=== PATIENT | female | born 1960 | race Hispanic/Latino ===

== ENCOUNTER 2017-04-28 12:23 | Outpatient (CLI) | payer MEDICARE ==
--- NOTE | 2017-04-28 14:40 | Mammography Report ---
Diagnostic mammogram with spot compression magnification and sonogram of right breast zone A and zone B. including subareolar area: History: Right nipple bloody discharge. Findings: On spot magnification views there is suspected dilated ducts noted in subareolar outer zone. No mass is seen in the ducts. There is 4 mm circumscribed density noted in the inner right breast. No microcalcification Sonographic examination reveals dilated ducts subareolar outer area without intrinsic mass or debris. Cluster of small cysts in the right breast probably corresponding to the density seen on spot views. No Impression: Dilated ducts subareolar area without mass or debris. Cluster of cysts in the right breast. Probably benign findings. Six-month followup is recommended. If patient has abnormal discharge ductogram may be advised. BI-RADS CATEGORY: 3 = Probably benign ACR BI-RADS MAMMOGRAPHIC CODES: 0 = Needs additional imaging evaluation; 1 = Negative; 2 = Benign; 3 = Probably benign; 4 = Suspicious; 5 = Malignant; 6 = Known biopsy-proven malignancy COMMENT: 1. Dense breast tissue, i.e., adenosis, fibrocystic changes, etc., may obscure an underlying neoplasm. 2. Approximately 10% of cancers are not detected with mammography. 3. A negative mammography report should not delay biopsy if a clinically suspicious mass is present. COMMENT: Patient follow-up letters are generated in [email or web address].
== END 2017-04-28 12:24 | disposition home or self-care (01) ==
LOC: SPVWC 12:23
PROVIDERS: ATTEND Surgery
DX: N64.52 Nipple discharge (principal); R92.2 Inconclusive mammogram
CPT/HCPCS: 76641; G0204; 77066

== ENCOUNTER 2017-06-24 07:03 | Day surgery (SDC) | payer MEDICARE, OTHER ==
[~2017-06-24 07:03] MED LIST: NACL 0.9% 1000 ML 1,000 ML IV SCH; PEPCID PO NR; VERSED IV NR
[2017-06-24] MEDS ORDERED: XYLOCAINE 1% 20 mL ONE (07:26)
[2017-06-24] MEDS ORDERED: MARCAINE 0.25% INFILTRATI ONE ×2 (07:26→09:58)
[2017-06-24] MEDS ORDERED: NACL BACTERIOSTATIC INFILTRATI ONE (07:27)
--- NOTE | 2017-06-24 07:40 | Anesthesia Day of Surgery ---
Anesthesia Day of Surgery - Day of Surgery Patient Examined: Yes Patient H&P Reviewed: Yes Patient is NPO: Yes Beta Blockers: Yes (took last evening)
--- NOTE | 2017-06-24 07:43 | Anesthesia Consultation ---
Anesthesia Consult and Med Hx Date of service: 06/24/17 - Airway Anesthetic Teeth Evaluation: Dentures (upper) ROM Head & Neck: Adequate Mental/Hyoid Distance: Adequate Mallampati Class: Class II Intubation Access Assessment: Probably Good - Pulmonary Exam CTA: Yes - Cardiac Exam Cardiac Exam: RRR - Pre-Operative Health Status ASA Pre-Surgery Classification: ASA3 Proposed Anesthetic Plan: General - Pulmonary Hx Smoking: Yes (STOPPED X 8 YRS- 2 PPD X 30 YRS) Hx Asthma: Yes (PRN INHALER, last used 8 yrs ago) Hx Sleep Apnea: No (SINDY PRE SCREEN HIGH RISK) - Cardiovascular System Hx Hypertension: Yes (NO MEDS) Hx Heart Attack/AMI: No Hx Cardia Arrhythmia: Yes (Afib, took atenolol last night) - Central Nervous System Hx Seizures: No CVA: No Hx Back Pain: Yes - Gastrointestinal Hx Gastroesophageal Reflux Disease: Yes (controlled with meds) - Endocrine Hx Renal Disease: Yes (Kidney disease stage 3) Hx Liver Disease: No Hx Non-Insulin Dependent Diabetes: Yes (insulin and pill) Hx Hypothyroidism: Yes (HX GRAVES DISEASE-TX WITH SURGERY) - Hematic Hx Anemia: Yes - Other Systems Hx Cancer: Yes (colon ca sp colon resection) Hx Obesity: Yes - Additional Comments Anesthesia Medical History Comments: NAC
[2017-06-24] MEDS ORDERED: BENADRYL ONE (08:00)
[2017-06-24] MEDS ORDERED: DECADRON ONE (08:29)
[2017-06-24] MEDS ORDERED: ZOFRAN ONE (08:29)
[2017-06-24] MEDS ORDERED: XYLOCAINE MPF 2% ONE (08:29)
[2017-06-24] MEDS ORDERED: SUBLIMAZE ONE (08:29)
[2017-06-24] MEDS ORDERED: DIPRIVAN 10 MG/ML IV ONE ×2 (08:29→10:13)
[2017-06-24] MEDS ORDERED: VANCOMYCIN/NS 1 GM/250 ML 1 GM/250 ML BAG IV NR (09:00)
[2017-06-24] MEDS ORDERED: DILAUDID IV PRN (09:14)
[2017-06-24] MEDS ORDERED: QUELICIN ONE (09:52)
[2017-06-24] MEDS ORDERED: PROAIR IH ONE (09:55)
[2017-06-24] MEDS ORDERED: XYLOCAINE 1% 20 mL INFILTRATI ONE (09:58)
[2017-06-24] MEDS ORDERED: WATER FOR IRRIG STERILE IR ONE (09:58)
[2017-06-24] MEDS ORDERED: ROBINUL ONE (10:00)
[2017-06-24] MEDS ORDERED: ZOFRAN IV PRN (10:00)
[2017-06-24] MEDS ORDERED: PROVENTIL IH ONE ×2 (10:40→12:00)
--- NOTE | 2017-06-24 10:46 | Short Stay Summary ---
Short Stay Documentation Date of service: 06/24/17 - History H&P: obtained from office - Allergies and Medications Current Medications: Allergies amoxicillin Allergy (Verified 06/17/17 15:26) Rash amoxicillin trihydrate [From Augmentin] Allergy (Verified 06/17/17 15:26) PASSES OUT cefaclor [From Ceclor] Allergy (Verified 06/17/17 15:26) Rash cefuroxime Allergy (Verified 06/17/17 15:26) Rash codeine Allergy (Verified 06/17/17 15:) Rash dimenhydrinate Allergy (Verified 06/17/17 15:) Rash Iodinated Contrast Media - IV Dye Allergy (Verified 06/17/17 15:) Rash meperidine HCl [From Demerol] Allergy (Verified 06/17/17:) Rash metronidazole [From Flagyl] Allergy (Verified 06/17/17 15:) Rash nitrofurantoin [From Macrobid] Allergy (Verified 06/17/17 15:) Rash nitrofurantoin macrocrystalline [From Macrobid] Allergy (Verified 06/17/17 15: ) Rash oxycodone Allergy (Verified 06/17/17 15:26) Rash potassium clavulanate [From Augmentin] Allergy (Verified 06/17/17 15:26) PASSES OUT Sulfa (Sulfonamide Antibiotics) Allergy (Verified 06/17/17:26) Rash tetracycline Allergy (Verified 06/17/17 15:) Rash topiramate Allergy (Verified 06/17/17 15:) Rash tramadol Allergy (Verified 06/17/17 15:26) PASSES OUT Home Medications Medication Instructions Recorded Confirmed Last Taken Type Ibuprofen [Motrin 800 MG tab] 800 mg PO Q8HR PRN #30 tablet 06/24/17 Unknown Rx Active Medications Hydromorphone HCl (Dilaudid) 0.5 mg IV Q10MIN PRN PRN Reason: Pain , Severe (7-10) Stop: 06/24/17 15:00 Sodium Chloride (Nacl 0.9% 1000 Ml) 1,000 mls @ 100 mls/hr IV DIRECT RUY Last Admin: 06/24/17 08:26 Dose: 100 mls/hr Vancomycin HCl (Vancomycin/Ns 1 Gm/250 Ml) 1 gm in 250 mls @ 167.007 mls/hr IV PREOP NR PRN Reason: Protocol Stop: 06/24/17 12:00 Last Admin: 06/24/17 08:31 Dose: 167.007 mls/hr Midazolam HCl (Versed) 2 mg IV PREOP NR Stop: 06/24/17 23:59 Last Admin: 06/24/17 08:27 Dose: 2 mg - Brief post op/procedure progress note Date of procedure: 06/24/17 Pre-op diagnosis: Right bloody nipple discharge Post-op diagnosis: same Procedure: Right nipple terminal duct excisional biopsy Anesthesia: GETA Findings: Right nipple spontaneous bloody nipple discharge with duct identified Surgeon: KIMMY HERNANDEZ Estimated blood loss: minimal Pathology: list Specimen disposition: to lab Condition: stable - Disposition Condition at discharge: Good Disposition: DC-01 TO HOME OR SELFCARE Short Stay Discharge Plan Activity: other (no heavy lifting) Diet: regular Wound: other (keep incision clean and dry; may shower in 24 hours; no baths, pools or lakes; do not rub or scrub incision) Follow up with: RICKY IBARRA MD [Primary Care Provider] - 7 Days KIMMY HERNANDEZ MD [Staff Physician] - 7 Days Prescriptions: Ibuprofen [Motrin 800 MG tab] 800 mg PO Q8HR PRN #30 tablet PRN Reason: Pain
--- NOTE | 2017-06-24 10:53 | Operative Report ---
Operative Report Operative Report: Date of procedure:[06/24/2017] Pre-operative diagnosis: Spontaneous right bloody nipple discharge Post-operative diagnosis: Same Procedure name(s): Right nipple terminal duct excisional biopsy Surgeon: Prema Wilkes M.D. Anesthesia: Gen. Findings: Bleeding from right nipple noted around the 9 o'clock position was appropriately identified and dissected free and sent to pathology Complications: None Drains: None Estimated blood loss: Minimal Disposition: PACU in good condition Indications for operative procedure: This is a 57 year old lady with right nipple spontaneous bloody nipple discharge. Recent diagnostic mammogram with benign findings and ductogram performed with nondiagnostic findings. Recommendations are to proceed with a right nipple terminal duct excisional biopsy to rule out malignancy. Patient wished to proceed with the above procedure. Procedure in detail: The patient was taken to the operating room. Gen. anesthesia was administered. The right breast was prepped and draped in the normal side operative fashion. The bleeding duct from the right nipple was identified around the 9 o'clock position. Lacrimal probe was inserted. A lateral periareolar incision was made with a 15 blade knife with dissection taken down to the subcutaneous tissues. First began with dissection of the tissues posterior to the nipple taken down posteriorly to 3 cm. The duct of concern was identified with a lacrimal probe appropriately inserted with duct appropriately dissected free. The terminal duct was appropriately marked using a 3-0 Vicryl stitch. The terminal duct with its surrounding tissues were removed with the aid of Bovie cautery and sent to pathology. Hemostasis was obtained with the aid of Bovie cautery. The breast cavity tissues were anesthetized with 1% lidocaine and quarter percent Marcaine. The subcutaneous tissues were approximated and closed using interrupted 3-0 Vicryl and skin brought together and closed using a running 4-0 Monocryl followed by skin affix. She tolerated surgery very well and was awakened from anesthesia without any complications and transported to PACU in good condition.
--- NOTE | 2017-06-24 15:19 | Post Anesthesia Evaluation ---
- Post Anesthesia Evaluation Patient Participated: Yes Airway Patent: Yes Stable Respiratory Function: Yes Nausea/Vomiting: No Temp > 96.8F: Yes Pain Manageable: Yes Adequeate Hydration: Yes Anesthesia Complications: No Block Receding Appropriately: Not Applicable Patient on Ventilator: No
[2017-06-24 18:35] VITALS: BP 102/57
== END 2017-06-24 12:49 | disposition home or self-care (01) ==
LOC: OR 07:03
PROVIDERS: ATTEND Surgery
DX: D24.1 Benign neoplasm of right breast (principal); J45.909 Unspecified asthma, uncomplicated; I48.91 Unspecified atrial fibrillation; K21.9 Gastro-esophageal reflux disease without esophagitis; E11.22 Type 2 diabetes mellitus with diabetic chronic kidney disease; I12.9 Hypertensive chronic kidney disease with stage 1 through stage 4 chronic kidney disease, or unspecified chronic kidney disease; N18.3 Chronic kidney disease, stage 3 (moderate); E03.9 Hypothyroidism, unspecified; D64.9 Anemia, unspecified; E66.9 Obesity, unspecified; Z68.41 Body mass index [BMI] 40.0-44.9, adult; Z87.891 Personal history of nicotine dependence; Z79.4 Long term (current) use of insulin; Z79.899 Other long term (current) drug therapy; Z90.49 Acquired absence of other specified parts of digestive tract; Z98.890 Other specified postprocedural states; Z85.038 Personal history of other malignant neoplasm of large intestine; Z88.1 Allergy status to other antibiotic agents; Z88.8 Allergy status to other drugs, medicaments and biological substances; Z88.5 Allergy status to narcotic agent; Z88.2 Allergy status to sulfonamides; Z91.041 Radiographic dye allergy status; Z80.0 Family history of malignant neoplasm of digestive organs; Z80.42 Family history of malignant neoplasm of prostate
CPT/HCPCS: 19120; 82962; 88307; J0330; J1100; J1200; J2250; J2405; J2704; J3010; J3370; J7030

== ENCOUNTER 2017-12-22 09:14 | Outpatient (CLI) | payer MEDICARE ==
--- NOTE | 2017-12-22 15:58 | Mammography Report ---
BILATERAL DIGITAL SCREENING MAMMOGRAM with CAD: 12/22/17 09:14:00 CLINICAL: Routine screening.History of a bloody right nipple discharge with negative workup. COMPARISON:04/28/17 FINDINGS: The breasts are almost entirely fatty.Right retroareolar ducts are smaller compared to prior exams. No mass, architectural distortion or suspicious calcifications. IMPRESSION: No mammographic evidence of malignancy. BI-RADS CATEGORY: 2 -- Benign RECOMMENDATION: Routine mammographic screening in one year. COMMENT: Patient follow-up letters are generated by our [employer] application.
== END 2017-12-22 09:15 | disposition home or self-care (01) ==
LOC: SPVWC 09:14
PROVIDERS: ATTEND Surgery
DX: Z12.31 Encounter for screening mammogram for malignant neoplasm of breast (principal)
CPT/HCPCS: 77067

== ENCOUNTER 2020-12-04 13:14 | Outpatient (CLI) | payer MEDICARE ==
--- NOTE | 2020-12-04 14:57 | Mammography Report ---
DIGITAL DIAGNOSTIC MAMMOGRAM WITH CAD , 12/04/2020 CLINICAL INFORMATION / INDICATION: History of bilateral nipple discharge FIBROSCLEROSIS OF LEFT BREAS T TECHNIQUE: Digital bilateral mammographic imaging was performed. This examination was interpreted with the benefit of Computer-aided Detection analysis. COMPARISON: 05/29/2020, 04/28/2017 FINDINGS: Breast Density: There are scattered areas of fibroglandular density. No dominant mass, suspicious calcifications or architectural distortion in either breast. Mild bilate ral ductal ectasia as well as mild stable benign-appearing nodularity is present and unchanged from 2 017. No interval change. IMPRESSION: No mammographic evidence of malignancy. Follow up recommendation: Clinical correlation with respect to bilateral nipple discharge. Otherwise resumption of annual screening mammography. BI-RADS Category 2: Benign. A "normal" or negative report should not discourage follow up or biopsy of a clinically significant f inding. A written summary of these findings will be mailed to the patient. The patient will be entered into a mammography reporting system which will generate a reminder letter for the patient's next appointmen t at the appropriate interval. According to the [employer], yearly mammograms are recommended starting at age 40 and continuing as long as a woman is in good health. Breast MRI is recommended for women with an tima roximately 20-25% or greater lifetime risk of breast cancer, including women with a strong family his tory of breast or ovarian cancer and women who have been treated for Hodgkin's disease. Signer Name: Adele Stallings MD Signed: 12/04/2020 2:53 PM Workstation Name: [id number]
--- NOTE | 2020-12-04 15:45 | Ultrasound Report ---
ULTRASOUND BREAST BILATERAL COMPLETE, 12/04/2020 CLINICAL INFORMATION / INDICATION: History of bilateral nipple discharge. TECHNIQUE: Complete sonographic evaluation of all 4 quadrants and retroareolar region was performed. COMPARISON: Bilateral mammography performed earlier today. FINDINGS: RIGHT: There is no evidence of a cystic or solid mass. No posterior shadowing or distortion are seen. There is no evidence of ductal ectasia or axillary adenopathy. LEFT: There is a mildly dilated duct at the 2:30 position 2 cm from the nipple. There is a 5.2 mm ovo id isoechoic solid nodule within the duct at that site. A focally dilated duct is seen in this region on mammography as well. No other abnormality is seen in the left breast. There is no evidence of argelia nopathy. IMPRESSION: 5 mm ovoid solid nodule within a focally dilated duct in the left breast at the 2:30 posi tion 2 cm from the nipple. There is a probable mammographic correlate. Ultrasound guided biopsy is re commended. Follow up recommendation: Surgical consult BI-RADS Category 4: Suspicious for Malignancy. BI-RADS Category 4A-low suspicion for malignancy. A normal or "negative" report should not preclude biopsy or follow-up of a clinically suspicious find ing. Signer Name: Ranjit Goodman MD Signed: 12/04/2020 3:40 PM Workstation Name: [id number]
== END 2020-12-04 13:15 | disposition home or self-care (01) ==
LOC: SPVWC 13:14
PROVIDERS: ATTEND Surgery
DX: N63.21 Unspecified lump in the left breast, upper outer quadrant (principal); N60.31 Fibrosclerosis of right breast
CPT/HCPCS: 77066

== ENCOUNTER 2020-12-11 12:15 | Outpatient (CLI) | payer MEDICARE ==
--- NOTE | 2020-12-11 13:49 | Mammography Report ---
ULTRASOUND GUIDED LEFT BREAST BIOPSY, 12/11/2020 DIAGNOSTIC MAMMOGRAM OF THE LEFT BREAST CLINICAL INFORMATION / INDICATION: POST US BX. COMPARISON: Mammogram and breast ultrasound from 12/04/2020 PROCEDURE: Risks, benefits, and indications to the procedure were discussed with the patient in detail, includin g bleeding, infection, hematoma formation, and inadequate tissue sampling. The patient agreed to proc eed with both verbal and written consent. A timeout procedure was performed with two patient identifi ers. The breast was prepped and draped in the usual sterile fashion. Lidocaine 1% was used for local anest hesia. Under direct ultrasound guidance, 4 separate core samples were obtained of the left breast int raductal nodule. A biopsy marker was then placed and a mammogram was performed to confirm appropriat e clip placement. Biopsy device was removed and hemostasis achieved with manual pressure. A sterile d ressing was applied to the skin. The patient tolerated the procedure without difficulty. No complications were encountered. Postbiopsy instructions were discussed with the patient and given in writing. Specimens were sent to pathology. IMPRESSION: 1. Technically successful ultrasound guided left breast biopsy and clip placement. Biopsy results are pending and will be reported in an addendum. Signer Name: Mahendra Bower MD Signed: 12/11/2020 1:45 PM Workstation Name: [id number]
--- NOTE | 2020-12-11 14:53 | Ultrasound Report ---
ULTRASOUND GUIDED LEFT BREAST BIOPSY, 12/11/2020 DIAGNOSTIC MAMMOGRAM OF THE LEFT BREAST CLINICAL INFORMATION / INDICATION: ABNORMAL MAMMOGRAM. COMPARISON: Mammogram and breast ultrasound from 12/04/2020 PROCEDURE: Risks, benefits, and indications to the procedure were discussed with the patient in detail, includin g bleeding, infection, hematoma formation, and inadequate tissue sampling. The patient agreed to proc eed with both verbal and written consent. A timeout procedure was performed with two patient identifi ers. The breast was prepped and draped in the usual sterile fashion. Lidocaine 1% was used for local anest hesia. Under direct ultrasound guidance, 4 separate core samples were obtained of the left breast int raductal nodule. A biopsy marker was then placed and a mammogram was performed to confirm appropriat e clip placement. Biopsy device was removed and hemostasis achieved with manual pressure. A sterile d ressing was applied to the skin. The patient tolerated the procedure without difficulty. No complications were encountered. Postbiopsy instructions were discussed with the patient and given in writing. Specimens were sent to pathology. IMPRESSION: 1. Technically successful ultrasound guided left breast biopsy and clip placement. Biopsy results are pending and will be reported in an addendum. Signer Name: Mahendra Bower MD Signed: 12/11/2020 2:49 PM Workstation Name: [id number]
== END 2020-12-11 12:16 | disposition home or self-care (01) ==
LOC: US 12:15
PROVIDERS: ATTEND Surgery
DX: N63.21 Unspecified lump in the left breast, upper outer quadrant (principal); R92.8 Other abnormal and inconclusive findings on diagnostic imaging of breast; I12.9 Hypertensive chronic kidney disease with stage 1 through stage 4 chronic kidney disease, or unspecified chronic kidney disease; E11.22 Type 2 diabetes mellitus with diabetic chronic kidney disease; N18.9 Chronic kidney disease, unspecified; G43.909 Migraine, unspecified, not intractable, without status migrainosus; E78.00 Pure hypercholesterolemia, unspecified; J45.909 Unspecified asthma, uncomplicated; E66.9 Obesity, unspecified; K21.9 Gastro-esophageal reflux disease without esophagitis; E03.9 Hypothyroidism, unspecified; F32.9 Major depressive disorder, single episode, unspecified; Z88.6 Allergy status to analgesic agent; Z88.5 Allergy status to narcotic agent; Z88.2 Allergy status to sulfonamides; Z88.8 Allergy status to other drugs, medicaments and biological substances; Z87.891 Personal history of nicotine dependence; Z85.038 Personal history of other malignant neoplasm of large intestine; Z90.710 Acquired absence of both cervix and uterus; Z98.890 Other specified postprocedural states; Z86.2 Personal history of diseases of the blood and blood-forming organs and certain disorders involving the immune mechanism
CPT/HCPCS: 88305

== ENCOUNTER 2021-06-12 05:46 | Day surgery (SDC) | payer MEDICARE ==
[2021-06-05 15:08] LABS: Hematocrit 43.9 % (30.3-42.9); Hemoglobin 14.4 gm/dl (10.1-14.3); Mean Corpuscular HGB Conc 33 % (30-34); Mean Corpuscular Volume 86 fl (79-97); Platelet Count 176 K/mm3 (140-440); Red Cell Distribution Width 15.7 % (13.2-15.2)
[2021-06-12] MEDS ORDERED: ceFAZolin/STERILE WATER 2 GM/20 ML SYRINGE IV NR (06:00)
[2021-06-12] MEDS ORDERED: VANCOMYCIN 2,000 MG in SODIUM CHLORIDE 0.9% 500 ML 500 ML IV ONE (07:00)
[2021-06-12] MEDS ORDERED: LACTATED RINGERS 1,000 ML IV SCH (07:00)
[2021-06-12] MEDS ORDERED: VANCOMYCIN/NS 1 GM/250 ML 1 GM/250 ML BAG IV NR (07:00)
[2021-06-12] MEDS ORDERED: LIDOCAINE MPF (2%) 20 MG/1 ML VIAL 5 ML ONE (07:10)
[2021-06-12] MEDS ORDERED: propofoL 200 MG/20 ML VIAL IV ONE (07:10)
[2021-06-12] MEDS ORDERED: fentaNYL 100 MCG/2 ML INJ ONE (07:10)
[2021-06-12 07:25] LABS: INR 0.97 (0.87-1.13); Partial Thromboplastin Time 20.7 Sec. (24.2-36.6)
[2021-06-12] MEDS ORDERED: PANTOPRAZOLE 40 MG TAB PO SCH (07:29)
[2021-06-12] MEDS ORDERED: atenoloL 50 MG TAB PO SCH (07:30)
[2021-06-12] MEDS ORDERED: ONDANSETRON 4 MG/2 ML INJ IV PRN (07:32)
[2021-06-12] MEDS ORDERED: HYDROmorphone 1 MG/1 ML INJ IV PRN ×2 (07:32)
--- NOTE | 2021-06-12 07:33 | Anesthesia Day of Surgery ---
Anesthesia Day of Surgery - Day of Surgery Patient Examined: Yes Patient H&P Reviewed: Yes Patient is NPO: Yes Beta Blockers: Yes
[2021-06-12] MEDS ORDERED: LIDOCAINE (1%) 10 MG/1 ML VIAL 20 ML MDV ONE (07:34)
[2021-06-12] MEDS ORDERED: BUPIVACAINE/PF (0.25%) 2.5 MG/ML 30 ML VIAL INFILTRATI ONE ×2 (07:35→09:23)
--- NOTE | 2021-06-12 07:35 | Anesthesia Consultation ---
Anesthesia Consult and Med Hx Date of service: 06/12/21 - Airway Anesthetic Teeth Evaluation: Dentures (Upper), Edentulous (Upper) ROM Head & Neck: Adequate Mental/Hyoid Distance: Adequate Mallampati Class: Class III Intubation Access Assessment: Probably Good - Pre-Operative Health Status ASA Pre-Surgery Classification: ASA3 Proposed Anesthetic Plan: General - Pulmonary Hx Smoking: Yes (FORMER SMOKER) Hx Asthma: Yes Hx Respiratory Symptoms: No (+2FS) COPD: No Hx Pneumonia: No Hx Sleep Apnea: No (SINDY PRE SCREEN HIGH RISK) - Cardiovascular System Hx Hypertension: No (patient denies, states atenolol is for thyroid) Hx Heart Attack/AMI: No Hx Percutaneous Transluminal Coronary Angioplasty (PTCA): No Hx Cardia Arrhythmia: Yes (paraoxysmal a-fib, NSR on EKG in preassessment) Hx Pacemaker: No Hx Internal Defibrillator: No Hx Heart Murmur: No - Central Nervous System Hx Neuromuscular Disorder: Yes (Neuropathy hands and feet) Hx Seizures: No CVA: No Hx Back Pain: Yes Hx Psychiatric Problems: Yes - Gastrointestinal Hx Gastroesophageal Reflux Disease: Yes (controlled) - Endocrine Hx Renal Disease: Yes (STAGE 3 KIDNEY DISEASE) Hx End Stage Renal Disease: No (WATCHING HER KIDNEYS) Hx Cirrhosis: No Hx Liver Disease: No Hx Insulin Dependent Diabetes: Yes Hx Non-Insulin Dependent Diabetes: Yes (insulin and pill) Hx Thyroid Disease: Yes Hx Hypothyroidism: Yes - Hematic Hx Anemia: No (H/H 13-39 on outpatient labs 01/24/21) Hx Sickle Cell Disease: No - Other Systems Hx Alcohol Use: No Hx Substance Use: No Hx Cancer: Yes Hx Obesity: Yes (BMI 43)
[2021-06-12] MEDS ORDERED: PREGABALIN 75 MG CAP PO NR (08:00)
[2021-06-12] MEDS ORDERED: MIDAZOLAM 2 MG/2 ML INJ IV NR (08:00)
[2021-06-12] MEDS ORDERED: PREGABALIN 25 MG CAP PO SCH (08:00)
[2021-06-12] MEDS ORDERED: dexAMETHasone 20 MG/5 ML VIAL ONE (08:30)
[2021-06-12] MEDS ORDERED: ONDANSETRON 4 MG/2 ML INJ ONE (08:30)
[2021-06-12] MEDS ORDERED: EPINEPHrine 1 MG/10 ML SYRINGE ONE (08:31)
[2021-06-12] MEDS ORDERED: ePHEDrine SULFATE 50 MG/1 ML INJ ONE (08:32)
[2021-06-12] MEDS ORDERED: BACITRACIN ZINC OINT 28.4 GM TP ONE (09:18)
[2021-06-12] MEDS ORDERED: LIDOCAINE (1%) 10 MG/1 ML VIAL 20 ML MDV INFILTRATI ONE (09:23)
[2021-06-12] MEDS ORDERED: WATER FOR IRRIG STERILE 1,500 ML BOTTLE IR ONE (09:25)
--- NOTE | 2021-06-12 09:37 | Short Stay Summary ---
Short Stay Documentation Date of service: 06/12/21 - History H&P: obtained from office - Allergies and Medications Current Medications: Allergies acetaminophen Allergy (Verified 06/05/21 14:58) Unknown amoxicillin Allergy (Verified 06/05/21 14:58) Rash amoxicillin trihydrate [From Augmentin] Allergy (Verified 06/05/21 14:58) PASSES OUT cefaclor [From Ceclor] Allergy (Verified 06/05/21 14:58) Rash cefuroxime Allergy (Verified 06/05/21 14:58) Rash codeine Allergy (Verified 06/05/21 14:58) Rash dimenhydrinate Allergy (Verified 06/05/21 14:58) Rash Iodinated Contrast Media [Iodinated Contrast Media - IV Dye] Allergy (Verified 06/05/21 14:58) Rash meperidine HCl [From Demerol] Allergy (Verified 06/05/21 14:58) Rash metronidazole [From Flagyl] Allergy (Verified 06/05/21 14:58) Rash nitrofurantoin [From Macrobid] Allergy (Verified 06/05/21 14:58) Rash nitrofurantoin macrocrystalline [From Macrobid] Allergy (Verified 06/05/21 14:58) Rash oxycodone Allergy (Verified 06/05/21 14:58) Rash potassium clavulanate [From Augmentin] Allergy (Verified 06/05/21 14:58) PASSES OUT Sulfa (Sulfonamide Antibiotics) Allergy (Verified 06/05/21 14:58) Rash tetracycline Allergy (Verified 06/05/21 14:58) Rash topiramate Allergy (Verified 06/05/21 14:58) Rash tramadol Allergy (Verified 06/05/21 14:58) PASSES OUT SEASONAL ALLERGIES-ALL YEAR LONG Adverse Reaction (Uncoded 06/05/21 14:58) Unknown TREES,GRASS,RITCHIE,MOLD,BEES Home Medications Medication Instructions Recorded Confirmed Last Taken Type Allopurinol 300 mg PO DAILY 06/24/17 06/05/21 06/11/21 History Atenolol 50 mg PO DAILY 06/24/17 06/05/21 06/11/21 History Duloxetine HCl [DULoxetine] 60 mg PO DAILY 06/24/17 06/05/21 06/11/21 History Furosemide [Lasix] 40 mg PO QDAY 0806/05/21 06/11/21 History Levothyroxine Sodium 137 mcg PO DAILY 06/24/17 06/05/21 06/11/21 History [Levothyroxine] Pravastatin Sodium 40 mg PO HS 06/24/17 06/05/21 06/11/21 History Pregabalin [Lyrica] 75 mg PO BID 06/24/17 06/05/21 06/11/21 History Warfarin Sodium 5 mg PO 4XW 06/24/17 06/12/21 06/07/21 History Zolpidem Tartrate 10 mg PO HS 06/24/17 06/05/21 06/11/21 History Albuterol Sulfate 2 puff INHALATION PRN 01/28/21 06/05/21 06/11/21 History Basaglar Promiseikpen U-100 56 units SQ HS 01/28/21 06/05/21 06/11/21 History DULoxetine 30 mg PO HS 01/28/21 06/05/21 06/11/21 History Dulaglutide [Trulicity] 1.5 mg SQ 1XW 01/28/21 06/05/21 06/11/21 History Fluticasone [Flonase] 1 spray INNOSTRIL PRN PRN 01/28/21 06/05/21 06/11/21 History Omeprazole 40 mg PO DAILY 01/28/21 06/05/21 06/11/21 History Warfarin [Coumadin] 7.5 mg PO 3XW 01/28/21 06/12/21 06/07/21 History traMADoL [Ultram 50 MG tab] 50 mg PO Q6HR PRN #10 tablet 06/12/21 Unknown Rx Active Medications Atenolol (Atenolol 50 Mg Tab) 50 mg PO PREOP RUY Stop: 06/12/21 12:00 Last Admin: 06/12/21 07:52 Dose: 50 mg Documented by: Hydromorphone HCl (Hydromorphone 1 Mg/1 Ml Inj) 0.25 mg IV Q10MIN PRN PRN Reason: Pain, Moderate (4-6) Stop: 06/12/21 23:00 Hydromorphone HCl (Hydromorphone 1 Mg/1 Ml Inj) 0.5 mg IV Q10MIN PRN PRN Reason: Pain , Severe (7-10) Stop: 06/12/21 23:00 Lactated Ringer's (Lactated Ringers) 1,000 mls @ 100 mls/hr IV DIRECT RUY Last Admin: 06/12/21 07:20 Dose: 100 mls/hr Documented by: Midazolam HCl (Midazolam 2 Mg/2 Ml Inj) 2 mg IV PREOP NR Stop: 06/12/21 23:59 Last Admin: 06/12/21 07:56 Dose: 2 mg Documented by: Ondansetron HCl (Ondansetron 4 Mg/2 Ml Inj) 4 mg IV ONCE PRN PRN Reason: Nausea And Vomiting Stop: 06/12/21 12:00 Pantoprazole Sodium (Pantoprazole 40 Mg Tab) 40 mg PO PREOP RUY Stop: 06/12/21 15:00 Last Admin: 06/12/21 07:53 Dose: 40 mg Documented by: Pregabalin (Pregabalin 75 Mg Cap) 75 mg PO PREOP NR Stop: 06/12/21 10:00 Last Admin: 06/12/21 07:53 Dose: 75 mg Documented by: - Brief post op/procedure progress note Date of procedure: 06/12/21 Pre-op diagnosis: Left clear nipple discharge Post-op diagnosis: same Procedure: Left nipple terminal duct excisional biopsy Anesthesia: GETA Findings: Left nipple terminal duct excisional biopsy; clip present as well from recent biopsy Surgeon: KIMMY HERNANDEZ Estimated blood loss: minimal Pathology: list Specimen disposition: to lab Condition: stable - Disposition Condition at discharge: Good Disposition: DC-01 TO HOME OR SELFCARE Short Stay Discharge Plan Activity: other (no heavy lifting) Diet: regular Wound: keep clean and dry (may shower in 48 hours; no baths, pools or lakes; apply bacitracin twice daily) Additional Instructions: YOU WILL NOT NEED TO TAKE YOUR MORNING DOSE OF ATENOLOL, OMEPRAZOLE (PROTONIX FOR OMEPRAZOLE), OR LYRICA SINCE THEY WERE GIVEN IN PREOP. Follow up with: KIMMY HERNANDEZ MD [Staff Physician] - 7 Days Prescriptions: traMADoL [Ultram 50 MG tab] 50 mg PO Q6HR PRN #10 tablet PRN Reason: Pain
--- NOTE | 2021-06-12 09:49 | Operative Report ---
Operative Report Operative Report: Date of procedure:June 12, 2021 Pre-operative diagnosis: Spontaneous left clear nipple discharge Post-operative diagnosis: Same Procedure name(s): Left nipple terminal duct excisional biopsy Surgeon: Prema Wilkes M.D. Top Stop Attacher: [place] Caraballo M.D. Anesthesia: Gen. Findings: Clear nipple discharge from left nipple was appropriately identified and dissected free and sent to pathology; biopsy site present from recent surgery with area excised and clip present on radiograph specimen Complications: None Drains: None Estimated blood loss: Minimal Disposition: PACU in good condition Indications for operative procedure: This is a 61 year old lady with left nipple spontaneous clear nipple discharge. Bilateral mammogram and left breast ultrasound December 04, 2020 with no suspicious mammographic finding and ultrasound findings left breast 2:30 position 2 cm from the nipple mildly dilated duct and a 5.2 mm oval isoechoic solid nodule with recommendation for biopsy BI-RADS 4. Patient underwent left breast ultrasound-guided core biopsy with fragments of benign breast tissue with cyst wall negative for atypia. Recommendations are to proceed with a left nipple terminal excisional biopsy given persistent left clear nipple discharge. Discharge most probable for papilloma versus fibrocystic breast versus duct ectasia. 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 Recommendations are to proceed with a left nipple terminal duct excisional biopsy to rule out malignancy. Patient wished to proceed with the above procedure. Procedure in detail: The patient was taken to the operating room. Gen. anesthesia was administered. The left breast was prepped and draped in the normal side operative fashion. The clear discharging duct from the left nipple was identified around the 11/1 o'clock position. Lacrimal probe was inserted. A lateral periareolar incision was made with a 15 blade knife with dissection taken down to the subcutaneous tissues. First began with dissection of the tissues posterior to the nipple taken down posteriorly to 3 cm. The duct of concern was identified with lacrimal probe appropriately inserted within the duct of concern. The terminal duct was appropriately marked using a 3-0 Vicryl stitch. The terminal duct with its surrounding tissues were removed with the aid of Bovie cautery. Upon dissection, recent area of biopsy with clip present was noted with an adjacent appearing nodular mass that was removed as well. Radiograph specimen with clip present. Breast cavity with no suspicious findings present. Specimen was sent to pathology. Hemostasis was obtained with the aid of Bovie cautery. The breast cavity tissues were anesthetized with 1% lidocaine and quarter percent Marcaine. The subcutaneous tissues were approximated and closed using interrupted 3-0 Vicryl and skin brought together and closed using a running 4-0 Monocryl followed by dermabond. She tolerated surgery very well and was awakened from anesthesia without any complications and transported to PACU in good condition.
--- NOTE | 2021-06-12 10:27 | Mammography Report ---
BREAST SPECIMEN RADIOGRAPH HISTORY: Lumpectomy FINDINGS/IMPRESSION: The submitted radiograph or radiographs demonstrate(s) the presence of a biopsy marker within the sub mitted specimen. No localization wire or additional abnormalities noted within the specimen. Signer Name: Adele Stallings MD Signed: 06/12/2021 10:22 AM Workstation Name: [id number]
[2021-06-12 11:02] VITALS: BP 127/63
== END 2021-06-12 10:34 | disposition home or self-care (01) ==
LOC: OR 05:46
PROVIDERS: ATTEND Surgery
DX: N64.52 Nipple discharge (principal); N60.81 Other benign mammary dysplasias of right breast; E03.9 Hypothyroidism, unspecified; E66.9 Obesity, unspecified; E11.22 Type 2 diabetes mellitus with diabetic chronic kidney disease; N18.30 Chronic kidney disease, stage 3 unspecified; J45.909 Unspecified asthma, uncomplicated; E78.00 Pure hypercholesterolemia, unspecified; I48.91 Unspecified atrial fibrillation; M19.90 Unspecified osteoarthritis, unspecified site; F41.9 Anxiety disorder, unspecified; F32.9 Major depressive disorder, single episode, unspecified; Z85.038 Personal history of other malignant neoplasm of large intestine; Z79.01 Long term (current) use of anticoagulants; Z79.899 Other long term (current) drug therapy; Z79.84 Long term (current) use of oral hypoglycemic drugs; Z88.1 Allergy status to other antibiotic agents; Z88.2 Allergy status to sulfonamides; Z88.5 Allergy status to narcotic agent; Z91.041 Radiographic dye allergy status; Z88.8 Allergy status to other drugs, medicaments and biological substances; Z87.891 Personal history of nicotine dependence; Z90.710 Acquired absence of both cervix and uterus; Z98.890 Other specified postprocedural states; Z20.822 Contact with and (suspected) exposure to COVID-19
CPT/HCPCS: 19120; 36415; 76098; 80048; 82962; 85027; 85610; 85730; 88307; J0171; J1100; J1170; J2250; J2405; J2704; J3010; J3370; J7040; J7120; U0003

== ENCOUNTER 2022-06-17 15:46 | Outpatient (CLI) | payer MEDICARE ==
[2022-06-17 17:27] LABS: Chol/HDL Ratio 3.34 %
== END 2022-06-17 15:47 | disposition home or self-care (01) ==
LOC: LAB 15:46
PROVIDERS: ATTEND Internal Medicine Nephrology
DX: N18.4 Chronic kidney disease, stage 4 (severe) (principal)
CPT/HCPCS: 36415; 80061; 86160; 86334

== ENCOUNTER 2022-07-09 14:54 | Outpatient (CLI) | payer MEDICARE ==
[2022-07-09 16:45] LABS: Color,Urine Straw (Yellow)
[2022-07-09 16:54] LABS: Creatinine,Urine 59.6 mg/dL (0.1-20.0)
[2022-07-09 16:56] LABS: Bacteria,Urine 4+ /HPF (Negative); Calcium 9.9 mg/dL (8.4-10.2); Mucus,Urine FEW /HPF
== END 2022-07-09 14:55 | disposition home or self-care (01) ==
LOC: LAB 14:54
PROVIDERS: ATTEND Internal Medicine Nephrology
DX: E11.22 Type 2 diabetes mellitus with diabetic chronic kidney disease (principal); N18.4 Chronic kidney disease, stage 4 (severe)
CPT/HCPCS: 36415; 80048; 81001; 82150; 82570; 86160; 86334; 87086